=== PATIENT | male | born 1990 | race Caucasian/White ===

== ENCOUNTER 2019-01-25 19:39 | Emergency (ER) | payer OTHER ==
[~2019-01-25] VITALS: Ht 188 cm; Wt 109.1 kg
[2019-01-25 19:58] VITALS: BP 142/63; TEMP 98.1
[2019-01-25] MEDS ORDERED: NORCO 325 MG-51 TAB PO (21:08)
[2019-01-25 21:24] VITALS: PULSE 57
== END 2019-01-25 21:34 | disposition home or self-care (01) ==
LOC: COL.ER 19:39
DX: S86.002A Unspecified injury of left Achilles tendon, initial encounter (principal); X50.1XXA Overexertion from prolonged static or awkward postures, initial encounter; Y93.67 Activity, basketball
CPT/HCPCS: J1885; Q4045